=== PATIENT | male | born 1990 | race Caucasian/White ===

== ENCOUNTER 2017-09-20 21:10 | Inpatient (IN) | payer OTHER ==
[~2017-09-20] VITALS: Ht 180.3 cm; Wt 66.3 kg
[2017-09-20 21:18] VITALS: BP 133/63
[2017-09-20 21:37] LABS: BILIRUBIN NEGATIVE (NEGATIVE); BLOOD NEGATIVE (NEGATIVE); CLARITY CLEAR (CLEAR); COLOR YELLOW (YELLOW); GLUCOSE NEGATIVE (NEGATIVE); KETONE NEGATIVE (NEGATIVE); LEUKO ESTERASE NEGATIVE (NEGATIVE); NITRITE NEGATIVE (NEGATIVE); PH 5.5 (5.0-9.0); SPECIFIC GRAVITY >= 1.030 (1.005-1.030)
[2017-09-20 21:47] LABS: URINE AMPHETAMINES > 1000 (1000ng/ml); URINE BARBITURATES < 200 (200ng/ml); URINE BENZODIAZEPINES < 200 (200ng/ml); URINE CANNABINOIDS (THC) > 50 (50ng/ml); URINE COCAINE < 300 (300ng/ml); URINE METHADONE < 300 (300ng/ml); URINE OPIATES > 300 (300ng/ml)
[2017-09-20 21:53] LABS: URINE PHENCYCLIDINE < 25 (25ng/ml)
[2017-09-20 21:54] LABS: BASO % 0.3 % (0.0-1.0); EOS # 0.1 10*3/uL (0.0-0.4); EOS % 1.6 % (1.0-4.0); HEMATOCRIT 40.7 % (42.0-52.0); HEMOGLOBIN 13.7 g/dl (14.0-18.0); LYMPH # 2.7 10*3/uL (1.3-4.4); LYMPH % 35.5 % (27.0-41.0); MEAN CELL VOLUME 86.2 fl (80.0-94.0); MEAN CORPUSCULAR HGB CONC 33.7 g/dl (33.0-37.0); MEAN PLATELET VOLUME 10.9 fl (9.6-12.3); MONO # 0.6 10*3/uL (0.1-1.0); MONO % 7.3 % (3.0-9.0); NEUT # 4.2 10*3/uL (2.3-7.9); PLATELET COUNT AUTOMATED 198 10*3/uL (130-400); RED BLOOD COUNT 4.72 10*6/uL (4.50-5.90); RED CELL DISTRI WIDTH 12.7 % (0-14.5); WHITE BLOOD COUNT 7.5 10*3/uL (4.8-10.8)
[2017-09-20 22:00] LABS: BACTERIA TRACE; RBC 0-2 rbc/hpf (0-2); WBC 0-2 wbc/hpf (0-5)
[2017-09-20 22:01] LABS: ALBUMIN 3.7 gm/dl (3.1-4.5); ALKALINE PHOSPHATASE 88 U/L (45-117); BUN 18 mg/dl (7-24); CHLORIDE 103 mmol/L (98-107); POTASSIUM 3.8 mmol/L (3.5-5.1); SGOT/AST 41 IU/L (3-35); SGPT/ALT 64 U/L (12-78); SODIUM 139 mmol/L (136-145); TOTAL PROTEIN 7.9 gm/dL (6.4-8.2)
[2017-09-20 22:02] LABS: ACETAMINOPHEN (TYLENOL) < 2.0 ug/ml (10-30)
[2017-09-20 22:07] LABS: ETHYL ALCOHOL < 3.0 mg/dl (<3)
[2017-09-20 23:05] VITALS: BP 86/43
--- NOTE | 2017-09-20 23:05 | NUR ---
26 year old MALE admitted to room # 404 for stabilization. 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 Compliant with admission procedure. Patient denies any anxiety, but is unable to sit still, taps toes to floor continuously, looks about room, unable to focus eyes on nurse during interview. See assessment forms for additional information about patient status.
[2017-09-20 23:13] VITALS: BP 86/43
[2017-09-21] VITALS: BP 86/43
[2017-09-21 04:00] VITALS: BP 107/45
[2017-09-21 08:00] VITALS: BP 105/53
--- NOTE | 2017-09-21 08:15 | NUR ---
HANS RUDD,ROBAXIN, VISTARIL GIVEN TOPREVENT S/S OPIATE WITHDRAWAL
--- NOTE | 2017-09-21 09:36 | NUR ---
RESTING QUIETLY AFTER PRN NEW VISION MEDS
[2017-09-21 12:00] VITALS: BP 109/60
--- NOTE | 2017-09-21 14:00 | NUR ---
ANOTHER ROUND OF PRN MEDS TO PREVENT S/S WITHDRAWAL=ZOFRAN,BENTYL,ROBAXIN,VISTARIL
--- NOTE | 2017-09-21 14:22 | NUR ---
DR CANCHOLA UPDATED THAT PT REFUSING SUBUTEX
--- NOTE | 2017-09-21 15:35 | NUR ---
D/C PLAN: PATIENT HAS AN APPOINTMENT AT [facility] IN [place] ON September AT 8:15AM FOR OUTPATIENT TREATMENT. PATIENT AGREES AND UNDERSTANDS HIS AFTERCARE PLAN. PATIENT ALSO UNDERSTANDS THAT HE IS RESPONSIBLE FOR HIS OWN TRANSPORTATION HOME AFTER DISCHARGE. 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
[2017-09-21 16:00] VITALS: BP 113/54
[2017-09-21 20:00] VITALS: BP 119/57
--- NOTE | 2017-09-21 20:00 | NUR ---
LABS RESULTS AND ORDERS REVIEWED
[2017-09-22] VITALS: BP 115/54
--- NOTE | 2017-09-22 07:03 | NUR ---
Shift chart check completed.
[2017-09-22 08:00] VITALS: BP 136/64
--- NOTE | 2017-09-22 09:40 | NUR ---
REQUIP GIVEN FOR RESTLESS LEGS. DENIES NEED FOR ANYTHING ELSE. REQUESTED NO LOVENOX TODAY - UP AND AMBULATING
--- NOTE | 2017-09-22 10:40 | NUR ---
SLEEPING SINCE REQUIP GIVEN
[2017-09-22 12:00] VITALS: BP 118/62
--- NOTE | 2017-09-22 12:15 | NUR ---
PT DENIES NEED FOR ANY MEDICATION - NOT INTERESTED IN EATING. SLEEPING MOST OF THE DAY
--- NOTE | 2017-09-22 13:23 | NUR ---
ZOFRAN GIVEN FOR INTERMITTENT NAUSEA. SUBUTEX GIVEN PER ROUTINE ORDER. PT STILL NOT WANTING TO EAT
[2017-09-22 16:00] VITALS: BP 129/62
--- NOTE | 2017-09-22 19:38 | NUR ---
PT. COMFORTABLY SLEEPING IN BED AT THIS TIME. UPON AROUSAL PT. IS PLEASANT AND COOPERATIVE, AND RESPONDS APPROPRIATELY. NO COMPLAINTS OR DISTRESS. HOB IS ELEVATED, BED IS LOW, WHEELS ARE LOCKED AND CALL LIGHT IS WITHIN REACH. SEE SHIFT ASSESSMENT.
[2017-09-22 20:00] VITALS: BP 118/60
--- NOTE | 2017-09-22 22:47 | NUR ---
PRN ROBAXIN GIVEN TO PT. FOR C/O MUSCLE ACHES. WILL MONITOR EFFECT.
--- NOTE | 2017-09-22 23:12 | NUR ---
PRN ROBAXIN SEEMS TO BE EFFECTIVE, PT IS SLEEPING COMFORTABLY.
[2017-09-23] VITALS: BP 128/62
--- NOTE | 2017-09-23 | NUR ---
RESTING IN BED WITH EYES CLOSED. CALL LIGHT WITHIN REACH.
[2017-09-23 06:31] LABS: BASO % 0.2 % (0.0-1.0); HEMATOCRIT 42.3 % (42.0-52.0); HEMOGLOBIN 14.3 g/dl (14.0-18.0); LYMPH # 1.6 10*3/uL (1.3-4.4); LYMPH % 16.5 % (27.0-41.0); MEAN CELL VOLUME 86.9 fl (80.0-94.0); MEAN CORPUSCULAR HGB 29.4 pg (27.0-31.0); MEAN CORPUSCULAR HGB CONC 33.8 g/dl (33.0-37.0); MEAN PLATELET VOLUME 11.4 fl (9.6-12.3); MONO # 0.4 10*3/uL (0.1-1.0); MONO % 4.3 % (3.0-9.0); NEUT # 7.5 10*3/uL (2.3-7.9); NEUT % 78.8 % (47.0-73.0); PLATELET COUNT AUTOMATED 194 10*3/uL (130-400); RED BLOOD COUNT 4.87 10*6/uL (4.50-5.90); RED CELL DISTRI WIDTH 12.8 % (0-14.5); WHITE BLOOD COUNT 9.5 10*3/uL (4.8-10.8)
[2017-09-23 07:10] LABS: CREATININE 0.82 mg/dL (0.70-1.30)
[2017-09-23 08:00] VITALS: BP 128/62
[2017-09-23 16:00] VITALS: BP 122/72
[2017-09-23 20:00] VITALS: BP 115/60
--- NOTE | 2017-09-23 22:32 | NUR ---
PATIENT MEDICATED WITH MOTRIN 600MG FOR COMPLAINTS OF BACK PAIN. RESTING IN BED WATCHING TV. WILL MONITOR FOR EFFECTIVENESS OF PAIN MEDICATION. CALL LIGHT IN REACH.
[2017-09-24] VITALS: BP 128/72
[2017-09-24 08:00] VITALS: BP 104/58; BP 126/70
--- NOTE | 2017-09-24 11:38 | NUR ---
DR LICONA WA UP TO SEE THE PATIENT AND HE WAS NOT IN HIS ROOM. HIS WALLET WAS LEFT IN THE ROOM BUT HIS OTHER BELONGINGS WERE GONE
--- NOTE | 2017-09-24 12:57 | NUR ---
PATIENT LEFT AMA
== END 2017-09-24 11:38 | disposition left against medical advice (07) | DRG 894 ==
LOC: ED 21:10 → EDHOLD 22:31 → 4E 22:31
PROVIDERS: Physician Assistant; ADMIT Internal Medicine
DX: F11.23 Opioid dependence with withdrawal (principal); B19.20 Unspecified viral hepatitis C without hepatic coma; G25.81 Restless legs syndrome; D64.9 Anemia, unspecified; R03.0 Elevated blood-pressure reading, without diagnosis of hypertension; R73.9 Hyperglycemia, unspecified; Z71.6 Tobacco abuse counseling; F15.10 Other stimulant abuse, uncomplicated; F12.10 Cannabis abuse, uncomplicated; F17.200 Nicotine dependence, unspecified, uncomplicated; M54.9 Dorsalgia, unspecified; Z53.21 Procedure and treatment not carried out due to patient leaving prior to being seen by health care provider; R74.0 Nonspecific elevation of levels of transaminase and lactic acid dehydrogenase [LDH]